=== PATIENT | female | born 2000 | race Caucasian/White ===

== ENCOUNTER 2023-04-05 20:15 | Emergency (ER) | payer SELFPAY ==
[~2023-04-05] VITALS: Ht 157.5 cm; Wt 100.0 kg
[2023-04-05 21:00] VITALS: BP 119/78; PULSE 101; RESP 20; TEMP 97.7; O2SAT 98
[2023-04-05 22:02] LABS: BASOPHILS % 0.3 % (0.0-2.0); EOSINOPHILS % 1.4 % (0.0-5.0); HEMATOCRIT. 42.5 % (36.0-48.0); HEMOGLOBIN. 13.8 g/dL (12.0-16.0); LYMPHOCYTES % 26.3 % (20.0-50.0); MEAN CORPUSCULAR HGB CONC 32.4 g/dL (31.0-37.0); MEAN CORPUSCULAR VOLUME 80.2 fL (81.0-99.0); MEAN PLATELET VOLUME 7.7 fl (7.4-10.4); MONOCYTES % 9.7 % (2.0-8.0); NEUTROPHILS % 62.3 % (40.0-76.0); PLATELET 326 x1000/uL (130-400); RED CELL DISTRIBUTION WIDTH 14.8 % (11.6-14.6); WHITE BLOOD COUNT 11.2 x1000/uL (4.5-11.0)
[2023-04-05 22:19] LABS: ACETAMINOPHEN < 2 ug/mL (10-30); ALANINE AMINOTRANSFERASE 25 IU/L (10-49); ALBUMIN 4.5 g/dL (3.2-4.8); ASPARTATE AMINOTRANSFERASE 20 IU/L (<34); BILIRUBIN TOTAL 0.2 mg/dL (0.1-1.0); CALCIUM 9.2 mg/dL (8.7-10.4); CARBON DIOXIDE 23 mEq/L (21-32); CHLORIDE 107 mEq/L (98-107); CREATININE 0.8 mg/dL (0.6-1.0); ETHANOL BLOOD 187 mg/dL (<10); GLUCOSE 101 mg/dL (70-105); POTASSIUM 3.7 mEq/L (3.5-5.1); PROTEIN TOTAL 7.8 g/dL (6.0-8.3); SODIUM 140 mEq/L (136-145); THYROID STIMULATING HORMONE 1.46 uIU/mL (0.55-4.78); UREA NITROGEN BLOOD 7 mg/dL (9-23)
== END 2023-04-06 00:21 | disposition home or self-care (01) ==
LOC: ER 20:30
DX: F10.129 Alcohol abuse with intoxication, unspecified (principal); R41.82 Altered mental status, unspecified; F12.10 Cannabis abuse, uncomplicated; Y90.6 Blood alcohol level of 120-199 mg/100 ml
CPT/HCPCS: 36415; 80053; 80307; 80320; 80329; 84443; 85025; 99283; G0480